=== PATIENT | female | born 1960 | race Caucasian/White ===

== ENCOUNTER 2016-10-11 03:21 | Emergency (ER) | payer OTHER ==
[2016-10-11 03:43] VITALS: TEMP 97.4; BMI 20.7
[2016-10-11] MEDS ORDERED: DIAZEPAM 5 MG TAB PO ONE (03:45)
[2016-10-11] MEDS ORDERED: OXYCODONE HCL 5 MG TABLET PO ONE (03:45)
--- NOTE | 2016-10-11 03:47 | EDPRACDOC ---
- General Information Chief Complaint: Back Pain Stated Complaint: BACK INJURY Time Seen by Provider: 10/11/16 03:45 Mode Of Arrival: Car Home Medications: Home Medications Cymbalta Unknown Dose 0 mg PO .BID SEE NOTES 01/10/16 Gabapentin [Neurontin] 300 mg PO .QAM &NOON 01/10/16 Gabapentin [Neurontin] 600 mg PO HS 01/10/16 Oxycodone HCl/Acetaminophen [Percocet 10-325 mg Tablet] 1 each PO QID MDD 4 Diazepam [Valium] 5 mg PO TID #30 tablet 10/11/16 Oxycodone HCl/Acetaminophen [Percocet 5-325 mg Tablet] 1 each PO Q4 #20 tablet 10/11/16 Allergies/Adverse Reactions: Allergies Allergy/AdvReac Type Severity Reaction Status Date / Time No Known Allergies Allergy Verified 10/11/16 03:39 - History of Present Illness Onset: 0300 HPI: PATIENT WAS LIFTING A HEAVY BUCKET AND FELT A POP IN RIGHT SIDE OF LOW BACK. PAIN RADIATES TO BUTTOCK. NO NUMBNESS OR TINGLING Pain Location: Reports: Right, Lumbar Pain Radiates To: Reports: Buttock Pain Caused By: Reports: Lifting Circumstances: Reports: Work-related Currently ?: No Pain Severity: Reports: Mild Pain Quality: Reports: Aching Worsened By: Reports: Movement Associated Signs and Symptoms: Reports: None ED Past Medical History - History Reviewed Yes Nurses notes reviewed and agree except as marked Travel Outside of [place] in the Last 3 Months?: No - Patient Medical History Respiratory History: Psychological History: Reports: Depression, Anxiety Systemic History: Reports: Cancer (melanoma), Anemia ( A CHILD) Additional Past Medical History: PLEURISY Surgical History: Reports: Other (MELANOMA REMOVAL, LEFT FOOT, RIGHT ELBOW). Denies: Hysterectomy - Family Medical History Reports: Diabetes (MOTHER, BROTHER), Cancer (FATHER ), Cardiac Disorders (FATHER ). Denies: Hypertension, Stroke - Social Medical History Smoking Status: Heavy tobacco smoker (5 or more cigarettes/day or daily pipe/ cigar) ETOH: None Substance Abuse: None Lives With: Family Lives In: Home EDM Review of Systems - Review of Systems ROS Negative Except as Marked: Yes All systems reviewed and were negative except as marked Constitutional: No Symptoms Reported. negative: Fever, Chills, Weakness, Fatigue, Loss of Appetite Eyes: No Symptoms Reported. negative: Redness, Blurred Vision, Double Vision, Discharge, Pain, Light Sensitive, Photophobia Ears: No Symptoms Reported. negative: Pain, Hearing Loss, Drainage, Ear Pulling Throat: No Symptoms Reported. negative: Pain, Swelling Nose: No Symptoms Reported. negative: Congestion, Bleeding, Discharge, Injection, Swelling, Deformity, Ecchymosis, Tender, Abrasion, Laceration Mouth: No Symptoms Reported. negative: Pain, Drooling Respiratory: No Symptoms Reported. negative: Cough, Brassy Cough, Barky Cough, Shortness of Breath, Wheezing, Hemoptysis Cardiovascular: No Symptoms Reported. negative: Chest Pain, Palpitations, Syncope, Edema, Orthopnea, PND, Skin Mottling, Cyanosis Gastrointestinal: No Symptoms Reported. negative: Pain, Constipation, Nausea, Vomiting, Diarrhea, Melena, Formula Intolerance Genitourinary: No Symptoms Reported. negative: Dysuria, Hematuria, Frequency, Discharge, Bleeding, Testicular Pain, Neurological: No Symptoms Reported. negative: Headache, Dizziness, Seizure, Numbness, Weakness, Speech Difficulty, Gait Difficulty Musculoskeletal: Back. negative: Arm, Ankle, Chestwall, Elbow, Forearm, Femur, Foot, Hand, Hip, Knee, Leg, Neck, Pelvis, Ribs, Shoulder, Wrist Integumentary: No Symptoms Reported. negative: Itching, Rash, Bruising, Wound Allergic/Immunologic: No Symptoms Reported. negative: Hives, Itching Hematologic: No Symptoms Reported. negative: Lymphadenopathy, Easy Bruising, Easy Bleeding Endocrine: No Symptoms Reported. negative: Weight Gain, Weight Loss Psychiatric: No Symptoms Reported. negative: Anxiety, Depression, Hallucinations, Insomnia, Suicidal - Physical Exam Constitutional: Alert (Awake), Distress (MILD) Oriented to: Time, Person, Place Last recorded Vital Signs: Last Vital Signs Temp 97.4 F L 10/11/16 03:40 Pulse 86 10/11/16 03:40 Resp 18 10/11/16 03:40 BP 136/64 10/11/16 03:40 Pulse Ox 95 10/11/16 03:40 Oxygen Pulse Oxygen Saturation 95 O2 Device Oxygen Flow Rate Fraction of Inspired Oxygen ( FIO2) - HEENT Head: Normal ( normocephalic) Eye Exam: Normal (PERRL, EOMI, Sclera white) Oropharynx: Normal (Pharynx:Moist without exudate,Gums-no swelling) Tympanic Membrane: Normal ENT EAC: Normal TMJ: Normal Nose: No Symptoms Reported (septum midline) Neck: Normal (FROM, trachea at midline) - Respiratory/Cardiovascular Respiratory: Normal - CTA (BBS clear to auscultation without adventitious sounds ) Cardiovascular: Normal (RRR without murmur, gallop or rub) - GI Auscultation: Normal (NABS) Palpation: Normal (Soft,No rebound or guarding, non distended) Tenderness: Non tender Walls's Sign: Negative - Musculoskeletal Extremities: Normal (Normal tone, Pulses 2+ No cyanosis or edema, FROM) - Integumentary Skin: Normal, Warm, Dry Lymphatics: Normal (no adenopathy) - Neurologic Memory Impaired: Normal Motor Function: Normal (Normal tone, Pulses 2+ No cyanosis or edema, FROM) Cranial Nerve: Normal (CN II-X11 intact sensation, strength 5/5) Cerebellar: Normal Mood Description: Normal Perception: Normal ED Back Exam - Neurologic Motor Deficit: None Reflexes: Normal - Musculoskeletal Cervical: Normal Thoracic: Normal Lumbar: Spasm, Limited ROM Midline: Normal Paraspinous: Spasm Decision Time to Discharge: 04:08 - Departure Yes I personally saw and evaluated the patient. Disposition: Home Condition: Good Final Diagnosis: Lumbar strain Qualifiers: Encounter type: initial encounter Qualified Code(s): S39.012A - Strain of muscle, fascia and tendon of lower back, initial encounter Instructions: Back Pain (ED), Core Strengthening Exercises (GEN), Thoracic ( Lumbar) Strain Education/Counseling Given To: Patient Education/Counseling Given Regarding: Diagnosis, Treatment, Prognosis, Follow Up Referrals: Collin Jensen MD [Primary Care Provider] - One Week Prescriptions: New Diazepam [Valium] 5 mg PO TID #30 tablet Oxycodone HCl/Acetaminophen [Percocet 5-325 mg Tablet] 1 each PO Q4 #20 tablet No Action Gabapentin [Neurontin] 600 mg PO HS Gabapentin [Neurontin] 300 mg PO .QAM &NOON Cymbalta Unknown Dose 0 mg PO .BID SEE NOTES Oxycodone HCl/Acetaminophen [Percocet 10-325 mg Tablet] 1 each PO QID MDD 4
--- NOTE | 2016-10-11 04:41 | DIRPT ---
CLINICAL DATA: Heavy lifting at work with lower back pain. EXAM: LUMBAR SPINE - COMPLETE 4+ VIEW COMPARISON: None. FINDINGS: There is no evidence of lumbar spine fracture. Alignment is normal. Intervertebral disc spaces are maintained. 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 Abdominal aortic atherosclerosis, notable for age IMPRESSION: 1. No acute finding. 2. 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 Electronically Signed By: Clifford Harrington M.D. On: 10/11/2016 04:38
[2016-10-11 05:20] VITALS: BP 172/79; PULSE 83
== END 2016-10-11 05:17 | disposition home or self-care (01) ==
LOC: ED 03:21
DX: S39.012A Strain of muscle, fascia and tendon of lower back, initial encounter (principal); X58.XXXA Exposure to other specified factors, initial encounter; Y93.9 Activity, unspecified
CPT/HCPCS: 72110; 80307; 99283; J3490